=== PATIENT | female | born 1950 | race Caucasian/White ===

== ENCOUNTER → 2017-01-15 | Outpatient (CLI) | payer BC ==
[~2017-01-15] MED LIST: BND25X PO; CALCTAB5 PO; LEVO125T72 PO; LSN/2025 PO; METF1000 PO; METO50TA16 PO; PRVC/20 PO
== END | disposition home or self-care (01) ==
LOC: C.PAPS 16:08
PROVIDERS: ATTEND Obstetrics & Gynecology
DX: Z12.4 Encounter for screening for malignant neoplasm of cervix (principal)

== ENCOUNTER 2017-10-14 11:31 | Emergency (ER) | payer BC ==
[~2017-10-14] VITALS: Ht 165.1 cm; Wt 121.0 kg
[2017-10-14 11:38] VITALS: TEMP 36.3; Ht 165.1 cm; Wt 121.0 kg
[2017-10-14] MEDS ORDERED: CALC-393 PO (12:26)
[2017-10-14] MEDS ORDERED: DIPH25CA94 PO (12:26)
[2017-10-14] MEDS ORDERED: DEXT-233 PO (12:27)
[2017-10-14] MEDS ORDERED: IBUPROFEN 200 MG TAB PO STA (12:48)
[2017-10-14] MEDS ORDERED: ACETAMINOPHEN 500 MG TAB PO STA (12:48)
[2017-10-14] MEDS ORDERED: AMOXICILLIN/CLAVULANATE TAB 875 MG TAB PO ONE (13:00)
[2017-10-14] MEDS ORDERED: BENZONATATE 100MG CAP PO ONE (13:00)
--- NOTE | 2017-10-14 14:15 | DIAGNOSTIC IMAGING REPORT ---
CHEST ONE VIEW PORTABLE HISTORY: cough COMPARISON: None. FINDINGS: The heart is mildly enlarged. Mild interstitial thickening which is likely chronic. No focal lung consolidations to suggest pneumonia. No evidence for pulmonary edema. No pleural effusions. No pneumothorax. IMPRESSION: Mild cardiomegaly and mild interstitial thickening which is likely chronic. No focal lung consolidations to suggest pneumonia. Electronically signed by: Ben Simmons M.D. 10/14/2017 2:14 PM Dictated Date/Time: 10/14/2017 2:13 PM
[2017-10-14] MEDS ORDERED: AMOX875T PO (15:24)
--- NOTE | 2017-10-14 15:24 | EMERGENCY ROOM VISIT NOTE ---
History Report prepared by Finesse: Ilene Fink Under the Supervision of: Dr. Austin Borden M.D. First contact with patient: 12:21 Chief Complaint: CONGESTION Stated Complaint: HEAD COLD,PAIN IN RIGHT SHOULDER,LIGHTHEADED Nursing Triage Summary: c/o congestion and sinus infection and today at work her right shoulder was hurting and she felt dizzy no complaints of pain currently History of Present Illness The patient is a 67 year old female with a past medical history of breast cancer, hypothyroidism, diabetes, hypertension, and dyslipidemia who presents to the ED with a cc of worsening congestion beginning a week ago. Positive lightheadedness, right shoulder pain, runny nose, productive cough, fevers, chills, and a sore throat. She notes that her nasal discharge is green in color and her lightheadedness started this morning. Negative for getting a flu shot this year. Source of History: patient Onset: a week ago Position: other (global) Quality: other (global) Timing: worsening Associated Symptoms: + fevers, + chills, + sorethroat, + cough Note: The patient complains of lightheadedness, right shoulder pain, and a runny nose. Review of Systems See HPI for pertinent positives and negatives. A total of ten systems were reviewed and were otherwise negative. Past Medical & Surgical Medical Problems: (1) Breast cancer (2) Diabetes (3) Dyslipidemia (4) HTN (hypertension) (5) Hypothyroidism Surgical Problems: (1) H/O breast reconstruction (2) Hx of appendectomy (3) Hx of bilateral mastectomy (4) Hx of total knee replacement Family History Patient reports no known family medical history. Social History Smoking Status: Current Every Day Smoker Alcohol Use: none Marital Status: Housing Status: lives with family Occupation Status: employed Current/Historical Medications Scheduled Amoxicillin & Pot Clavulanate (Augmentin 875-125 mg), 875 MG PO BID Calcium Carbonate (Calcium), 600 MG PO HS Dextromethorphan-Phenylephrine (Day Time Multi-Symptom Co), 1 CAP PO Q4H Diphenhydramine Hcl (Aler-Cap), 25 MG PO HS Hctz/Lisinopril (Lisinopril/Hctz 20/25 Mg), 1 TAB PO HS Levothyroxine Sodium (Synthroid), 125 MCG PO QAM Metformin Hcl (Glucophage), 1,000 MG PO BID Metoprolol Tartrate (Lopressor) (Lopressor), 50 MG PO BID Pravastatin Sod (Pravastatin Sodium), 20 MG PO HS Allergies Coded Allergies: Cat Dander (Verified Allergy, Unknown, CONGESTION AND SWELLING, 10/14/17) PT STATES HAS 2 CATS AND ANTIHISTAMINE PRIOR TO BED AND SLEEPS WITH CATS Grass (Verified Allergy, Unknown, ALLERGY TO TREES, 10/14/17) Sulfamethoxazole w/Trimethoprim (Verified Allergy, Unknown, UNKNOWN, ) Physical Exam Vital Signs Date Time Temp Pulse Resp B/P (MAP) Pulse Ox O2 Delivery O2 Flow Rate FiO2 10/14/17 15:48 65 20 164/86 95 10/14/17 13:31 66 18 172/84 97 Room Air 10/14/17 12:56 97 Room Air 10/14/17 11:38 36.3 67 20 128/76 96 Room Air Physical Exam GENERAL: Awake, alert, well-appearing, NAD HENT: Normocephalic, atraumatic. Posterior pharynx is clear. No tonsillar or uvular deviation. Mild frontal and maxillary sinus TTP EYES: Normal conjunctiva. Sclera non-icteric. NECK: Supple. No nuchal rigidity. FROM. No stridor. RESPIRATORY: CTAB, no rhonchi, wheezing, crackles CARDIAC: RRR, no MRG ABDOMEN: Soft, NTND, BS+ MSK: No chest wall TTP, no LE edema; mild R trapezial pain NEURO: GCS 15, CN 2-12 intact, moves all 4s on command SKIN: No rash or jaundice noted. Medical Decision & Procedures ER Provider Diagnostic Interpretation: Radiology results as stated below per my review and radiologist interpretation: CHEST ONE VIEW PORTABLE HISTORY: cough COMPARISON: None. FINDINGS: The heart is mildly enlarged. Mild interstitial thickening which is likely chronic. No focal lung consolidations to suggest pneumonia. No evidence for pulmonary edema. No pleural effusions. No pneumothorax. IMPRESSION: Mild cardiomegaly and mild interstitial thickening which is likely chronic. No focal lung consolidations to suggest pneumonia. Electronically signed by: Ben Simmons M.D. 10/14/2017 2:14 PM Dictated Date/Time: 10/14/2017 2:13 PM Medications Administered Medications (Trade) Dose Ordered Sig/Grupo Route Start Time Stop Time Status Last Admin Dose Admin Amoxicillin/ Clavulanate Potassium (Augmentin Tab) 875 mg NOW ONCE PO 10/14/17 13:00 10/14/17 13:01 DC 10/14/17 13:29 875 MG Benzonatate (Tessalon Perles Cap) 100 mg NOW ONCE PO 10/14/17 13:00 10/14/17 13:01 DC 10/14/17 13:29 100 MG Ibuprofen (Advil Tab) 400 mg NOW STAT PO 10/14/17 12:48 10/14/17 12:49 DC 10/14/17 13:29 400 MG Acetaminophen (Tylenol Tab) 1,000 mg NOW STAT PO 10/14/17 12:48 10/14/17 12:49 DC 10/14/17 13:29 1,000 MG ECG Indication: back/shoulder pain Rate (beats per minute): 65 Rhythm: normal sinus Findings: T-wave inversion (lead 3), left axis deviation, other (normal intervals, T wave flattening in avF, no other STS changes or TWI) Comparison ECG Date: 05/16/2013 Change: no significant change ED Course 1240: The patient was evaluated in room B10. A complete history and physical exam was performed. 1455: I reevaluated the patient. Discussed results and discharge instructions: she verbalized understanding and agreement. The patient is ready for discharge. Medical Decision The patient is a 67 year old female with a past medical history of breast cancer, hypothyroidism, diabetes, hypertension, and dyslipidemia who presents to the ED with a cc of worsening congestion beginning a week ago. Etiologies such as viral syndrome, tonsillitis, streptococcal pharyngitis, mononucleosis, peritonsillar abscess, retropharyngeal abscess, otitis, pneumonia , influenza, as well as others were entertained. Patient was seen and evaluated the bedside. Patient had been complaining some worsening congestion. Patient believes that she has had some purulent discharge. Patient believes she has had some postnasal drip which has caused her to have a purulent expectorant. On exam the patient is have mild frontal and maxillary sinus tenderness to palpation. Patient is a clear posterior pharynx, is non-stridulous, and has clear lungs. Patient did have a chest x- ray. Patient was treated symptomatically and the patient was given a first course of Augmentin given her purulent sinus drainage for greater than 1 week time. Patient did have an EKG was obtained given that the patient was complaining some right shoulder pain. Patient denied any chest pain or shortness of breath. Patient's EKG was unchanged from priors. This was likely ACS. No further workup was done with an unchanged EKG and lack of symptoms. This was mainly obtained given possible atypical referred pain, but given the unchanged EKG less likely. Chest x-ray was negative for any acute focal consolidation, pneumothorax, or pleural effusion. It did show mild cardiomegaly. Given the patient was fairly well-appearing and in stable vital signs I did discuss obtaining blood work stated given her nontoxic appearance and stable vital signs and the fact that we are going to treat with antibiotics at this would likely not change the course of care. Patient was in agreement with this plan. Patient was feeling improved after being given her symptoms and treatment. Patient was given further instructions for at-home over-the- counter medications and was given a prescription for Augmentin. Patient was deemed suitable for outpatient follow-up and treatment at this time.Patient was given strict follow-up, discharge, and return precautions. All questions were answered. Patient was deemed suitable for outpatient follow-up at this time. Patient agreed with the plan of care and was safely discharged home. Medication Reconcilliation Current Medication List: was personally reviewed by me Blood Pressure Screening Patient's blood pressure: Elevated blood pressure Blood pressure disposition: Referred to PCP Impression Primary Impression: Sinusitis Additional Impression: Trapezius strain Scribe Attestation The scribe's documentation has been prepared under my direction and personally reviewed by me in its entirety. I confirm that the note above accurately reflects all work, treatment, procedures, and medical decision making performed by me. Departure Information Dispostion Home / Self-Care Prescriptions Amoxicillin & Pot Clavulanate (Augmentin 875-125 mg) 1 Tab Tab 875 MG PO BID for 7 Days, #14 TAB Prov: Austin Borden M.D. 10/14/17 Referrals Norm Noguera M.D. (PCP) Forms HOME CARE DOCUMENTATION FORM, IMPORTANT VISIT INFORMATION Patient Instructions ED Muscle Aching, ED Sinusitis Abx Tx, My [facility] Additional Instructions Please return to the emergency department if you have worsening or recurrent symptoms not amenable to at-home treatment. Please call for a follow-up appointment with her primary care physician. Please take your medications as prescribed. If you have other concerns and/or complaints please feel free to also call your primary care physician's office or return the ED for further evaluation, management, and treatment. You may take 600 mg Ibuprofen every 6 hours as needed for pain with food for no more than 2 consecutive days. You may take tylenol 1000 mg every 6 hours as needed for pain. You may take motrin and tylenol separately or at the same time. Take your medications as prescribed. If taking an antibiotic consider taking a probiotic and/or eating yogurt, but at the least, please take with food as it can cause upset stomach. He may try additional [id number] medications to help with your sinus congestion. If he did take any decongestants do not take for more than 2 days at a time. He may consider saline nasal sprays, humidifier, hot showers, or other remedies found at the pharmacy. Please feel free to talk with the pharmacist for any recommendations. FO your mild shoulder pain you may try moist heat, Ben[place] or icy hot. The Motrin and Tylenol will also help with this discomfort. You have been examined and treated today on an emergency basis only. This is not a substitute for, or an effort to provide, complete comprehensive medical care. It is impossible to recognize and treat all injuries or illnesses in a single emergency department visit. It is therefore important that you follow up closely with [facility], your PCP, and/or your specialist(s). Call as soon as possible for an appointment. Thank you for your time and consideration. I look forward to speaking with you again soon. Please don't hesitate to call us if you have any questions. Problem Qualifiers Primary Impression: Sinusitis Sinusitis location: maxillary Chronicity: acute Recurrence: not specified as recurrent Qualified Codes: J01.00 - Acute maxillary sinusitis, unspecified Additional Impression: Trapezius strain Encounter type: initial encounter Laterality: right Qualified Codes: S46.811A - Strain of other muscles, fascia and tendons at shoulder and upper arm level, right arm, initial encounter
[2017-10-14 15:48] VITALS: BP 164/86; PULSE 65; O2SAT 95
== END 2017-10-14 15:49 | disposition home or self-care (01) ==
LOC: C.EDB 11:33
DX: J01.00 Acute maxillary sinusitis, unspecified (principal); S46.811A Strain of other muscles, fascia and tendons at shoulder and upper arm level, right arm, initial encounter; X58.XXXA Exposure to other specified factors, initial encounter; E11.9 Type 2 diabetes mellitus without complications; E78.5 Hyperlipidemia, unspecified; I11.9 Hypertensive heart disease without heart failure; E03.9 Hypothyroidism, unspecified; F17.200 Nicotine dependence, unspecified, uncomplicated; Z79.84 Long term (current) use of oral hypoglycemic drugs

== ENCOUNTER → 2017-11-15 | Outpatient (CLI) | payer BC ==
[~2017-11-15] MED LIST changes: -BND25X PO; +CALC-393 PO; -CALCTAB5 PO; +DEXT-233 PO; +DIPH25CA94 PO
== END | disposition home or self-care (01) ==
LOC: C.MAMM 09:48
PROVIDERS: ATTEND Family Medicine
DX: Z13.820 Encounter for screening for osteoporosis (principal)